=== PATIENT | male | born 1980 ===

== ENCOUNTER 2020-07-26 | Outpatient (CLI) | payer OTHER | END 2020-07-26 14:17 | disposition home or self-care (01) | LOC: PPH VACUNA | DX: Z23 Encounter for immunization (principal) ==

== ENCOUNTER 2021-04-26 10:25 | Outpatient (CLI) | payer OTHER | END 2021-04-26 11:00 | disposition home or self-care (01) | LOC: PPH VACUNA 10:25 | PROVIDERS: ATTEND Emergency Medicine Pediatric Emergency Medicine | DX: Z23 Encounter for immunization (principal) ==